=== PATIENT | female | born 1995 | race African-American/Black ===

== ENCOUNTER 2020-08-17 09:50 | Emergency (ER) | payer OTHER, SELFPAY ==
--- NOTE | ~2020-08-17 | CT_ITS ---
EXAMINATION: CT soft tissue neck w con EXAM DATE: 08/17/2020 12:49 INDICATION: Difficulty swallowing, foreign body sensation. TECHNIQUE: Spiral CT of the neck was performed following intravenous injection of 75 mL Omnipaque 350 . Axial, coronal and sagittal images were reviewed. The dose-length product (DLP) for this examinat ion was 512.63 mGy-cm. The exposure was tailored according to patient size (auto mA exposure control ), and iterative reconstruction (ASIR) was used as additional dose reduction technique. There is no prior study for comparison. FINDINGS: The nasopharyngeal tonsils are enlarged, but there is no abscess and the parapharyngeal fat is clear. The thyroid gland is unremarkable. The submandibular and parotid glands are symmetric. There is no cervical lymphadenopathy. There are no masses identified. The superior mediastinum is unremarkable. The airway is unremarkable. The opacified vasculature is patent. The orbits ar e unremarkable. Visualized sinuses and mastoid air cells are well aerated. Lung apices are clear. There is cervical spondylosis. IMPRESSION: Enlarged tonsils without abscess. No radiopaque foreign body identified. Reviewed, dictated and finalized at location B. IMPRESSION: Enlarged tonsils without abscess. No radiopaque foreign body ident ified.
[2020-08-17 09:53] VITALS: BP 121/78; PULSE 72; RESP 18; TEMP 36.7; O2SAT 99
--- NOTE | 2020-08-17 12:07 | ED.URI ---
HPI - URI/Sore Throat General Chief Complaint: Upper Respiratory Infection Stated Complaint: Sore throat Time Seen by Provider: 08/17/20 10:26 Source: patient Mode of arrival: ambulatory Limitations: no limitations History of Present Illness HPI Narrative: Patient is a 25 year old female who presents with sore throat x 1-2 weeks. Patient reports difficulty swallowing and foreign body sensation to throat. Patient reports seen at and tested for strep and Covid, both negative per patient. She reports burning pain in throat and has taken Tylenol and Ibuprofen without relief. Patient is also reporting using otc allergy medications without relief. Patient denies all other complaints at this time. MD elicited complaint: sore throat Related Data Allergies Allergy/AdvReac Type Severity Reaction Status Date / Time No Known Allergies Allergy Verified 08/17/20 13:33 Review of Systems Review of Systems: Narrative: CONSTITUTIONAL: Denies fever, chills, or sweats. EYES: Denies visual changes, redness, or discharge. ENT: Reports sore throat and difficulty swallowing CARDIOVASCULAR: Denies chest pain, palpitations, or edema. RESPIRATORY: Denies cough or dyspnea. GASTROINTESTINAL: Denies abdominal pain, nausea, vomiting, or diarrhea. GENITOURINARY: Denies dysuria or hematuria. SKIN: Denies rash or itching. MUSCULOSKELETAL: Denies back pain, joint pain, or myalgia. NEUROLOGIC: Denies headache, numbness, dizziness, or weakness. PSYCHIATRIC: Denies anxiety or depression. FOR[facility] Family History Family History (Updated 08/17/20 @ 12:09 by QIAN Cardozo) Other Heart disease Social History Social History (Updated 08/17/20 @ 12:09 by QIAN Cardozo) Smoking status: Never smoker Alcohol intake: current Alcohol use details: occasional Substance use: never Living arrangements: with family Comments At the time of signature, I have reviewed and agree with nursing past medical, surgical, social, and family history unless otherwise noted. Please see nursing chart for further information. There is no relevant family history pertinent to the presenting complaint. Exam Narrative: Exam Narrative: GENERAL: Well-appearing, well-nourished, and in no acute distress. HEAD: Normocephalic, atraumatic. EYES: EOMI. No redness or drainage. Conjunctiva are normal. ENT: Mucous membranes pink and moist. Nares clear. No rhinorrhea. Throat with erythema, mild edema and exudate noted. Uvula midline. NECK: AROM. Supple. No lymphadenopathy. CHEST: No respiratory distress. HEART: Regular rate and rhythm. EXTREMITIES: Normal range of motion. No edema. SKIN: Warm, dry, no rash. NEURO: No focal deficits. Alert and oriented x3. Gait steady. PSYCH: Normal affect. No signs of depression or anxiety. Course Vital Signs Vital signs: Vital Signs Temperature 36.7 C 08/17/20 09:53 Pulse Rate 72 08/17/20 09:53 Respiratory Rate 18 08/17/20 09:53 Blood Pressure 121/78 08/17/20 09:53 Pulse Oximetry 99 08/17/20 09:53 Temperature 36.7 C 08/17/20 09:53 Pulse Rate 62 08/17/20 12:26 Respiratory Rate 16 08/17/20 12:26 Blood Pressure 111/72 08/17/20 12:26 Pulse Oximetry 98 08/17/20 12:26 Reviewed-patient is informed that they may have pre-hypertension or hypertension based on a blood pressure reading. I recommend the patient call the primary care provider listed on their discharge instructions or a physician of their choice this week to arrange follow-up for further evaluation of possible pre-hypertension or hypertension. MDM - URI/Sore Throat MDM Narrative Medical decision making narrative: Patient is afebrile and nontoxic in appearance. Labs are unremarkable, CT of neck shows no peritonsillar abscess, however tonsils are enlarged, discussed with patient most likely viral illness versus tonsillitis. Patient started on antibiotics at this time and prednisone for comfort. Patient agrees with plan of care.
[2020-08-17 12:09] LABS: Basophils Absolute Auto 0.1 K/mm3 (0.0-0.1); Basophils Percent Auto 0.8 % (0.2-1.2); Eosinophils Absolute Auto 0.4 K/mm3 (0-0.3); Eosinophils Percent Auto 5.4 % (0-4.4); Hematocrit 42.6 % (37.0-47.0); Hemoglobin 13.6 g/dL (12.0-15.0); Immature Granulocyte Absolute 0.03 K/mm3 (0.00-0.031); Immature Granulocyte Percent A 0.4 % (0-0.5); Lymphocytes Absolute Auto 2.56 K/mm3 (0.9-3.2); Mean Corpuscular HGB Conc 31.9 g/dl (32-36); Mean Corpuscular Hemoglobin 30.3 pg (26-34); Mean Corpuscular Volume 94.9 fl (80-100); Mean Platelet Volume 8.5 fl (7.4-10.4); Monocytes Absolute Auto 0.6 K/mm3 (0.1-0.6); Monocytes Percent Auto 8.1 % (2.6-8.5); Neutrophils Absolute Auto 4.1 K/mm3 (1.3-6.7); Neutrophils Percent Auto 52.3 % (45.5-73.1); Platelet Count Result 387 k/mm3 (150-375); Red Blood Count 4.49 M/mm3 (4.2-5.4); Red Cell Distribution Width 14.4 % (11.5-14.5); White Blood Count 7.8 K/mm3 (4.5-10.0)
[2020-08-17 12:20] LABS: Alanine Aminotransferase 15 U/L (4-35); Albumin Level 4.3 g/dL (3.5-5.1); Alkaline Phosphatase 56 U/L (38-126); Anion Gap 7 mmol/L (8-16); Aspartate Amino Transferase 27 U/L (14-36); Bilirubin,Total 0.6 mg/dL (0.2-1.3); Blood Urea Nitrogen 8 mg/dL (7-17); Carbon Dioxide 27 mmol/L (22-30); Chloride 107 mmol/L (98-107); Estimated CRCL calculation 91 ml/min; Estimated Glomerular Filt Rate > 60; Glucose 93 mg/dL (65-105); Potassium 4.2 mmol/L (3.4-5.0); Sodium 141 mmol/L (137-145)
[2020-08-17 12:26] VITALS: BP 111/72; PULSE 62; RESP 16; O2SAT 98
[2020-08-17 13:57] VITALS: BP 119/77; PULSE 84; RESP 12; O2SAT 98
== END 2020-08-17 14:08 | disposition home or self-care (01) ==
PROVIDERS: Emergency Provider Nurse Practitioner
DX: J03.90 Acute tonsillitis, unspecified (principal); B34.9 Viral infection, unspecified; R03.0 Elevated blood-pressure reading, without diagnosis of hypertension
CPT/HCPCS: 36415; 70491; 80053; 85025; 87081; 87880; 99284; Q9967